=== PATIENT | male | born 2000 | race Caucasian/White ===

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

== ENCOUNTER 2021-12-03 20:51 | Emergency (ER) | payer OTHER ==
[~2021-12-03] VITALS: Ht 180.3 cm; Wt 72.6 kg
[~2021-12-03 20:51] MED LIST: LEVETIRACETAM500 MG PO
== END 2021-12-03 22:00 | disposition home or self-care (01) ==
LOC: ED 20:51 → EDBD 20:53 → ED 22:00
DX: G40.909 Epilepsy, unspecified, not intractable, without status epilepticus (principal); E86.0 Dehydration; Z79.899 Other long term (current) drug therapy
CPT/HCPCS: 36415; 80053; 80177; 85025; 96374; 96375; 99284-25; J1953; J2060; J2405